=== PATIENT | female | born 1955 ===

== ENCOUNTER 2024-07-06 05:52 | Observation (INO) ==
[~2024-07-06 05:52] MED LIST: NS 0.45% 1000 ml BAG 1,000 ML IV SCH; Naloxone 0.4 mg VIAL 0.4 mg/ml 1 ml VIAL IV PRN; Ondansetron 4 mg VIAL 2 MG/ML 2 ml VIAL IV PRN; fentaNYL 100 mcg/2 ml 50 MCG/ML VIAL IV PRN
[2024-07-06] MEDS ORDERED: ceFAZolin 2 GM PREMIX 2 GM/50 ML BAG ONE (06:07)
[2024-07-06] MEDS ORDERED: Tranexamic Acid 1 GM/100ML BAG 2,000 MG/200 ML BAG IV ONE (06:07)
[2024-07-06] MEDS ORDERED: fentaNYL 250 mcg/5 ml 50 MCG/ML 5 ml VIAL (250 MCG) ONE (06:24)
[2024-07-06] MEDS ORDERED: Midazolam 2 mg/2 ml VIAL 1 mg/ml 2 ml VIAL (2 mg) ONE ×2 (06:24→07:13)
[2024-07-06] MEDS ORDERED: Lidocaine 2% PF 5 ML VIAL ONE (06:24)
[2024-07-06] MEDS ORDERED: Ondansetron 4 mg VIAL 2 MG/ML 2 ml VIAL ONE (06:24)
[2024-07-06 06:26] LABS: Rapid COVID-19 Molecular Undetected (Undetected)
[2024-07-06] MEDS ORDERED: fentaNYL 100 mcg/2 ml 50 MCG/ML VIAL ONE (07:13)
[2024-07-06] MEDS ORDERED: ROPIVACAINE 5 MG/ML 30 ML BTL (0.5%) ONE ×2 (07:14→07:15)
[2024-07-06] MEDS ORDERED: Dexamethasone IV 4 MG/ML VIAL 1 ml VIAL ONE (07:14)
[2024-07-06] MEDS ORDERED: Propofol 10 MG/ML 20 ML BTL ONE (08:45)
[2024-07-06] MEDS ORDERED: Ondansetron 4 mg VIAL 2 MG/ML 2 ml VIAL IV PRN (10:06)
[2024-07-06] MEDS ORDERED: Morphine 2 MG/ML SYRINGE IV PRN (10:06)
[2024-07-06] MEDS ORDERED: Calcium Carb (TUMS) 500 mg CHEW TAB PO PRN (10:06)
[2024-07-06] MEDS ORDERED: Lactulose 30 ml UDC PO PRN (10:06)
[2024-07-06] MEDS ORDERED: Magnesium Hydroxide LIQ 30 ML UDC PO PRN (10:06)
[2024-07-06] MEDS ORDERED: Ondansetron ODT 4 mg TAB 4 MG TAB PO PRN (10:06)
[2024-07-06] MEDS: Lactated Ringers 1000 ml BAG 1,000 ML IV SCH ×2 (11:08→11:47)
[2024-07-06] MEDS: Buffered Lidocaine 1% SYRIN 1 ml INTRADERM ONE (11:08)
[2024-07-06] MEDS: Acetaminophen IV 1 GM/100ML 1,000 MG/100 ML BAG IV ONE (11:08)
[2024-07-06] MEDS: ceFAZolin 2 GM PREMIX 2 GM/50 ML BAG IV SCH (15:31)
[2024-07-06] MEDS: Magnesium Hydroxide LIQ 30 ML UDC PO SCH (22:17)
[2024-07-07 07:11] LABS: Hematocrit 37.5 % (35-45); Hemoglobin 12.5 g/dL (11.5-14.3); Mean Platelet Volume 8.5 fL (7.5-11.2); Platelet Count 202 10^3/uL (150-450)
[2024-07-07 07:36] LABS: Calcium 9.2 mg/dL (8.6-10.3); Creatinine, Serum 0.65 mg/dL (0.51-0.95); Potassium 4.1 mmol/L (3.5-5.0); eGFR CKD-EPI 95.2 (>60)
[2024-07-07] MEDS: Vitamin THERAPEUTIC TAB PO SCH (07:51)
[2024-07-07] MEDS: COVID VAC 24-25 (12+) (Moderna) Syringe 0.5 mL IM ONE (07:52)
== END 2024-07-07 13:24 | disposition home or self-care (01) ==
LOC: OR 05:52 → SSU 05:52
PROVIDERS: ADMIT Orthopaedic Surgery Adult Reconstructive Orthopaedic Surgery; ATTEND Orthopaedic Surgery Adult Reconstructive Orthopaedic Surgery